=== PATIENT | female | born 1975 | race Caucasian/White ===

== ENCOUNTER 2016-10-07 20:12 | Outpatient (CLI) | payer MEDICAID | END 2016-10-07 20:13 | disposition home or self-care (01) | DX: N20.0 Calculus of kidney (principal) ==

== ENCOUNTER 2016-11-03 08:00 | Outpatient (CLI) | payer MEDICAID | END 2016-11-03 23:59 | disposition home or self-care (01) | DX: R19.7 Diarrhea, unspecified (principal); K92.1 Melena ==

== ENCOUNTER 2016-12-02 09:59 | Day surgery (SDC) | payer MEDICAID ==
[2016-12-02] MEDS ORDERED: LACTATED RINGERS 1,000 ML IV ONE ×2 (10:35→12:36)
[2016-12-02] MEDS ORDERED: MIDAZOLAM 2 MG/2 ML VIAL IVP ONE (12:11)
[2016-12-02] MEDS ORDERED: fentaNYL 250 MCG/5 ML VIAL IVP ONE (12:11)
== END 2016-12-02 10:00 | disposition home or self-care (01) ==
PROC: 0DBE8ZX Excision of Large Intestine, Via Natural or Artificial Opening Endoscopic, Diagnostic (ICD-10-PCS; principal; 2016-12-02 11:00)
DX: R19.7 Diarrhea, unspecified (principal); K64.2 Third degree hemorrhoids; F17.200 Nicotine dependence, unspecified, uncomplicated; J45.909 Unspecified asthma, uncomplicated
CPT/HCPCS: 45380; 81025; J3010; J7120

== ENCOUNTER 2017-10-13 14:42 | Emergency (ER) | payer MEDICAID ==
[2017-10-13 15:07] LABS: BILIRUBIN,URINE NEGATIVE (NEGATIVE); GLUCOSE, URINE (UA) NEGATIVE (NEGATIVE); KETONES,URINE (UA) NEGATIVE (NEGATIVE); LEUKOCYTE ESTERASE, URINE NEGATIVE (NEGATIVE); NITRITE,URINE NEGATIVE (NEGATIVE); OCCULT BLOOD,URINE NEGATIVE (NEGATIVE); PROTEIN,URINE NEGATIVE (NEGATIVE); UROBILINOGEN,URINE 0.2 (NORMAL) E.U./dL (NORMAL)
[2017-10-13 15:09] LABS: CLARITY,URINE CLEAR (CLEAR); HCG UR QUAL NEGATIVE
[2017-10-13 15:12] LABS: BASOPHILS # (AUTO) 0.1 10^3/uL (0.0-0.1); BASOPHILS % (AUTO) 0.6 %; EOSINOPHILS # (AUTO) 0.2 10^3/uL (0.0-0.7); EOSINOPHILS % (AUTO) 1.4 %; HGB - HEMOGLOBIN 14.1 g/dL (12.0-16.0); LYMPHOCYTES # (AUTO) 2.7 10^3/uL (1.5-3.5); LYMPHOCYTES % (AUTO) 23.7 %; MEAN CORPUSCULAR HEMOGLOBIN 29.2 pg (27.0-31.0); MEAN CORPUSCULAR HGB CONC 33.8 g/dL (32.0-36.0); MEAN CORPUSCULAR VOLUME 86.5 fL (81.0-99.0); MEAN PLATELET VOLUME 7.5 fL (7.9-10.8); MONOCYTES # (AUTO) 0.7 10^3/uL (0.0-1.0); MONOCYTES % (AUTO) 5.8 %; NEUTROPHILS # (AUTO) 7.7 10^3/uL (1.5-6.6); NEUTROPHILS % (AUTO) 68.5 %; PLT - PLATELET COUNT 272 10^3/uL (130-450); RED BLOOD COUNT 4.82 10^6/uL (4.20-5.40); RED CELL DISTRIBUTION WIDTH 14.7 % (12.0-15.0); WHITE BLOOD COUNT 11.3 x10^3/uL (4.8-10.8)
[2017-10-13 15:25] LABS: ALBUMIN 4.1 g/dL (3.2-5.5); ALBUMIN/GLOBULIN RATIO 1.2 (1.0-2.2); BILIRUBIN,TOTAL 0.9 mg/dL (0.2-1.0); CALCIUM 9.2 mg/dL (8.5-10.3); CREATININE 0.8 mg/dL (0.4-1.0); TOTAL PROTEIN 7.4 g/dL (6.7-8.2)
[2017-10-13] MEDS ORDERED: IOPAMIDOL-300 50 ML VIAL ONE (15:25)
[2017-10-13] MEDS ORDERED: ONDANSETRON 4 MG/2 ML VIAL IVP STA ×3 (15:36→19:37)
[2017-10-13] MEDS ORDERED: MORPHINE 10 MG/ML VIAL IVP STA ×2 (15:36→17:17)
[2017-10-13] MEDS ORDERED: BARIUM SULFATE 450 ML BOTTLE PO ONE (16:43)
--- NOTE | 2017-10-13 17:45 | CT Report ---
EXAM: CT ABDOMEN AND PELVIS EXAM DATE: 10/13/2017 05:15 PM. CLINICAL HISTORY: RLQ pain. Concern for appendicitis. COMPARISONS: 09/09/2016. TECHNIQUE: Routine helical CT imaging was performed through the abdomen and pelvis. IV contrast: 92 i odine allergy. Enteric contrast: Yes. Reconstructions: Coronal and sagittal. In accordance with CT protocol optimization, one or more of the following dose reduction techniques w ere utilized for this exam: automated exposure control, adjustment of mA and/or KV based on patient s ize, or use of iterative reconstructive technique. FINDINGS: Lung Bases: Unremarkable. Liver: Normal. No masses. Gallbladder/Bile Ducts: Unremarkable. Spleen: Normal. Pancreas: Normal. Adrenal Glands: Normal. Kidneys: Unremarkable right kidney. The left kidney remains ptotic and rotated, otherwise unremarkabl e. Peritoneal Cavity/Bowel: Normal. No free fluid, free air or adenopathy. No masses or acute inflammato ry process. The central pelvic appendix is well visualized and normal. Pelvic Organs: The reproductive organs and bladder are unremarkable. Vasculature: No aneurysms or other significant abnormality. Bones: No significant abnormality. Other: None. IMPRESSION: Normal abdomen and pelvis CT. Normal appendix noted. [facility] Referring Provider Line: [phone] SITE ID: [id number]
--- NOTE | 2017-10-13 20:12 | Ultrasound Report ---
EXAM: PELVIC ULTRASOUND EXAM DATE: 10/13/2017 07:24 PM. CLINICAL HISTORY: Right adnexal pain. COMPARISON: 10/13/2027. TECHNIQUE: Realtime transabdominal pelvic scan performed to identify the uterus and adnexa and as an overview of other pelvic structures, followed by transvaginal scan to provide greater detail of the u terus and adnexa, with static image documentation. FINDINGS: Uterus: 8.4 x 6.1 x 5.0 cm, volume 134 cc. Anteverted position. Normal overall size and echotexture. Masses: There is a left fundal subserosal fibroid measuring 2.4 x 1.8 x 2.1 cm. Endometrium: 10 mm. Echotexture is somewhat heterogeneous. There punctate echogenic foci within the d istal endometrium which could represent calcification. There is a 0.6 cm hypoechoic focus within the mid endometrium. This could represent a small cyst or submucosal fibroid. Cervix: There are several small cervical cysts. Right Ovary: 3.3 x 2.2 x 2.1 cm, volume 8 cc. Normal vascularity. There are several small follicles w ithin the right ovary. Left Ovary: Not seen. Free Fluid: There is a small amount of free fluid within the pelvis. Other: None. IMPRESSION: 1. There is a left fundal subserosal fibroid measuring up to 2.4 cm in diameter. 2. The endometrium is normal in thickness. Demonstrates mild heterogeneity. There is a 0.6 cm hypoech oic focus within the posterior mid endometrium. The hypoechoic focus could represent an endometrial c yst or possibly submucosal fibroid. 3. Right ovary is normal in size and vascularity. There are several left ovarian follicles. 4. The left ovary is not seen. 5. There is a small amount of free fluid within the pelvis. [facility] Referring Provider Line: [phone] SITE ID: [id number]
[2017-10-13] MEDS ORDERED: HYDROcod/ACETAM 5/325 MG TABLET PO STA (21:22)
--- NOTE | 2017-10-13 21:22 | ED Physician Documentation ---
History of Present Illness - Stated complaint Stated Complaint: APPENDICITIS R/O - Chief complaint Chief Complaint: Abd Pain - History obtained from History obtained from: Patient (pt sent to the ER for evaluation of RLQ pain and concern for appendicitis. states that she has had pain for the past couple days with increasing over the past day. no urinary sx, no vaginal bleeding, has had some nausea.) Review of Systems Constitutional: reports: Chills, Fatigue. denies: Fever Cardiac: denies: Chest pain / pressure, Palpitations Respiratory: denies: Dyspnea, Cough GI: reports: Abdominal Pain, Nausea, Vomiting. denies: Constipation, Diarrhea, Hematemesis : denies: Dysuria, Frequency, Vaginal bleeding Skin: denies: Rash, Lesions Musculoskeletal: denies: Neck pain, Back pain Neurologic: denies: Generalized weakness, Headache, LOC PD PAST MEDICAL HISTORY - Past Medical History Past Medical History: Yes Cardiovascular: None Respiratory: Asthma Endocrine/Autoimmune: None GI: Chronic diarrhea : None HEENT: Chronic vision loss Psych: Depression Musculoskeletal: None Derm: None - Past Surgical History Past Surgical History: Yes /POSTDOCTORAL SCHOLAR: Tubal ligation - Present Medications Home Medications: Ambulatory Orders Medication Instructions Recorded Confirmed Albuterol Sulfate 1.25 mg IH DAILY 03/28/13 10/13/17 HYDROcod/ACETAM 5/325 [[place] 5/325] 1 - 2 ea PO Q6H PRN #15 tablet 10/13/17 Ondansetron Odt [Zofran Odt] 4 mg TL Q6H PRN #10 tablet 10/13/17 - Allergies Allergies/Adverse Reactions: Allergies Allergy/AdvReac Type Severity Reaction Status Date / Time iodine Allergy breathing Verified 10/13/17 14:49 problems - Social History Does the pt smoke?: No Smoking Status: Never smoker Does the pt drink ETOH?: Yes Does the pt have substance abuse?: Yes - Immunizations Immunizations are current?: Yes PD ED PE NORMAL - Vitals Vital signs reviewed: Yes - General General: Alert and oriented X 3, No acute distress - HEENT HEENT: Atraumatic, Moist mucous membranes - Cardiac Cardiac: RRR, No murmur - Respiratory Respiratory: No respiratory distress, Clear bilaterally - Abdomen Abdomen: Soft, Other (RLQ tenderness with guarding. + heel tap, ) - Back Back: No CVA TTP - Derm Derm: Normal color, No rash - Extremities Extremities: No deformity, No edema - Neuro Neuro: Alert and oriented X 3 Eye Opening: Spontaneous Motor: Obeys Commands Verbal: Oriented GCS Score: 15 - Psych Psych: Normal mood, Normal affect Results - Vitals Vitals: Vital Signs - 24 hr 10/13/17 10/13/17 10/13/17 14:48 17:40 19:34 Temperature 36.4 C L Heart Rate 79 80 71 Respiratory 16 16 20 Rate Blood Pressure 115/69 105/65 120/76 O2 Saturation 100 95 99 10/13/17 10/13/17 20:49 21:43 Temperature 36.6 C Heart Rate 67 65 Respiratory 16 18 Rate Blood Pressure 114/70 110/68 O2 Saturation 97 98 Oxygen O2 Source Room air - Labs Labs: Laboratory Tests 10/13/17 10/13/17 10/13/17 14:55 15:00 15:00 WBC 11.3 H RBC 4.82 Hgb 14.1 Hct 41.7 MCV 86.5 MCH 29.2 MCHC 33.8 RDW 14.7 Plt Count 272 MPV 7.5 L Neut # 7.7 H Lymph # 2.7 Antelope # 0.7 Eos # 0.2 Baso # 0.1 Absolute Nucleated RBC 0.00 Nucleated RBC % 0.0 Sodium 138 Potassium 3.7 Chloride 100 L Carbon Dioxide 24 Anion Gap 14.0 H BUN 13 Creatinine 0.8 Estimated GFR (MDRD) 79 L Glucose 99 Calcium 9.2 Total Bilirubin 0.9 AST 19 ALT 13 Alkaline Phosphatase 56 Total Protein 7.4 Albumin 4.1 Globulin 3.3 Albumin/Globulin Ratio 1.2 Lipase 31 Urine Color YELLOW Urine Clarity CLEAR Urine pH 6.0 Ur Specific [place] >=1.030 H Urine Protein NEGATIVE Urine Glucose (UA) NEGATIVE Urine Ketones NEGATIVE Urine Occult Blood NEGATIVE Urine Nitrite NEGATIVE Urine Bilirubin NEGATIVE Urine Urobilinogen 0.2 (NORMAL) Ur Leukocyte Esterase NEGATIVE Ur Microscopic Review NOT INDICATED Urine Culture Comments NOT INDICATED Urine HCG, Qual NEGATIVE - Rads (name of study) CT ABD/Pelvis Radiology: Final report received (MPRESSION: Normal abdomen and pelvis CT. Normal appendix noted. ), EMP read contemporaneously pelvic US Radiology: Final report received (normal right ovary, left ovarian follicles, small amount of free fluid in the pelvis) PD MEDICAL DECISION MAKING - ED course Complexity details: reviewed results, re-evaluated patient, considered differential, d/w patient ED course: no appy, normal right ovary, no urinary sx, no vaginal discharge, pt denies STI' s or possibilities of STI's. no surgical condition found. will treat symptoms. does have free fluid in the pelvis which may be from a ruptured cyst. pt given return precautions. Departure - Departure Disposition: 01 Home, Self Care Clinical Impression: Abdominal pain Condition: Good Instructions: ED Abdominal Pain Unkn Cause Follow-Up: Patti Limon ARNP [Primary Care Provider] - Prescriptions: HYDROcod/ACETAM 5/325 [[place] 5/325] 1 - 2 ea PO Q6H PRN #15 tablet PRN Reason: Pain Ondansetron Odt [Zofran Odt] 4 mg TL Q6H PRN #10 tablet PRN Reason: Nausea / Vomiting Comments: Call your primary care provider for a follow up. Return to the ER for any new or worsening symptoms, Forms: Activity restrictions Discharge Date/Time: 10/13/17 21:44
[2017-10-13 21:44] VITALS: BP 110/68
== END 2017-10-13 21:44 | disposition home or self-care (01) ==
LOC: ED 14:42
DX: R10.31 Right lower quadrant pain (principal)
CPT/HCPCS: 36415; 74176; 76830; 76856; 80053; 81003; 81025; 83690; 85025; 93976; 96374; 96375; 96376; 99283; 99284; A9270; 81001; 87086

== ENCOUNTER 2017-10-27 16:26 | Outpatient (CLI) | payer MEDICAID ==
[~2017-10-27 16:26] MED LIST: GADOBUTROL 7.5 MMOL/7.5 ML VIAL ONE
[2017-10-27] MEDS: GADOBUTROL 7.5 MMOL/7.5 ML VIAL IVP ONE (17:14)
--- NOTE | 2017-10-28 17:40 | MRI Preliminary Report ---
Exam: MRI BRAIN W/WO Impressions: 1. No acute or subacute ischemic change. 2. There is a 1.7 cm meningioma overlying left occipital lobe, mild focal mass effect however no reac tive vasogenic edema, no midline shift. 3. Remaining brain, orbits negative as detailed. [facility] SITE ID: [id number]
--- NOTE | 2017-10-28 17:41 | MRI Report ---
EXAM: MRI BRAIN WITHOUT AND WITH CONTRAST EXAM DATE: 10/27/2017 05:25 PM. CLINICAL HISTORY: BRAIN MENINGIOMA. COMPARISON: None. TECHNIQUE: Multiplanar, multisequence T1-weighted and fluid-sensitive MR sequences of the brain were performed. Sequences optimized for routine evaluation. Other: None. IV Contrast: Yes. Findings: Relevant images are indicated (image number, series number). There is no acute or subacute ischemic change in the brain. There is no significant hemosiderin depos ition present in the brain. Postcontrast imaging demonstrates single homogenously enhancing extra-axial mass overlying left occip ital pole near the parietal occipital sulcus (40, 1201; 68, 1202), which measures 1.7 x 1.1 x 1.5 cm AP by transverse by sagittal. Mild focal mass effect however no vasogenic edema. Postcontrast imaging otherwise demonstrates no other suspicious enhancement of the brain, meninges. Basal cisterns, bilateral IACs, bilateral Meckel's caves are clear. Orbital contents negative. No cor tical atrophy. Ventricles are not dilated. There are normal expected vascular flow voids of the major arteries and veins. There are no suspicious marrow lesions. There is no white matter disease. Pituit danika, mid brain, craniocervical junction, limited evaluation upper cervical cord negative. Extraocular muscles, optic nerves, orbital apex, optic chiasm negative. Impressions: 1. No acute or subacute ischemic change. 2. There is a 1.7 cm meningioma overlying left occipital lobe, mild focal mass effect however no reac tive vasogenic edema, no midline shift. 3. Remaining brain, orbits negative as detailed. [facility] Referring Provider Line: [phone] SITE ID: [id number]
== END 2017-10-27 16:27 | disposition home or self-care (01) ==
LOC: DI 16:26
PROVIDERS: ATTEND Nurse Practitioner Family
DX: D32.0 Benign neoplasm of cerebral meninges (principal)
CPT/HCPCS: 70553; A9585

== ENCOUNTER 2017-11-30 11:21 | Emergency (ER) | payer MEDICAID, OTHER ==
[2017-11-30 11:36] VITALS: BP 123/80
[2017-11-30] MEDS ORDERED: IBUPROFEN 800 MG TABLET PO STA (12:35)
--- NOTE | 2017-11-30 12:38 | ED Physician Documentation ---
PD HPI UPPER EXT INJURY - Stated complaint Stated Complaint: R ARM INJ-GLF - Chief complaint Chief Complaint: Ext Problem - History obtained from History obtained from: Patient - History of Present Illness Location: Right, Arm, Wrist Type of injury: Fall Where injury occurred: Work Timing - onset: How many hours ago (2) Worsened by: Moving, Palpating Associated symptoms: No: Weakness, Numbness Similar symptoms before: Has not had sx before - Additonal information Additional information: The patient is a 42-year-old female who was at work when she tripped over a pallet and fell, impacting her right upper extremity against a shopping cart. She presents now complaining of pain in her right wrist and right upper arm. She is right-hand dominant. She denies any other injuries. Review of Systems Constitutional: denies: Fever Nose: denies: Congestion Cardiac: denies: Chest pain / pressure Respiratory: denies: Dyspnea, Cough GI: denies: Abdominal Pain, Nausea, Vomiting Skin: denies: Rash, Abrasion (s), Laceration (s) Musculoskeletal: reports: Extremity pain (Right upper extremity.). denies: Back pain Neurologic: denies: Focal weakness, Numbness, Head injury, LOC PD PAST MEDICAL HISTORY - Past Medical History Past Medical History: Yes Cardiovascular: None Respiratory: Asthma Endocrine/Autoimmune: None GI: Chronic diarrhea : None HEENT: Chronic vision loss Psych: Depression Musculoskeletal: None Derm: None Other Past Medical History: Report "tumor" on the L side of head. - Past Surgical History Past Surgical History: Yes /ACUTE CARE REGISTERED NURSE: Tubal ligation - Present Medications Home Medications: Ambulatory Orders Medication Instructions Recorded Confirmed Albuterol Sulfate 1.25 mg IH DAILY 03/28/13 11/30/17 HYDROcod/ACETAM 5/325 [[place] 5/325] 1 - 2 ea PO Q6H PRN #15 tablet 11/30/17 - Allergies Allergies/Adverse Reactions: Allergies Allergy/AdvReac Type Severity Reaction Status Date / Time iodine Allergy breathing Verified 11/30/17 11:31 problems - Social History Does the pt smoke?: Yes Smoking Status: Current every day smoker Does the pt drink ETOH?: Yes ETOH Use: Wine, Beer Does the pt have substance abuse?: Yes Substance Use and Type: Marijuana - Immunizations Immunizations are current?: Yes - POLST Patient has POLST: No PD ED PE NORMAL - Vitals Vital signs reviewed: Yes (normal) - General General: Alert and oriented X 3, Well developed/nourished - HEENT HEENT: Atraumatic, EOMI - Neck Neck: No bony TTP, No adenopathy - Cardiac Cardiac: RRR, No murmur - Respiratory Respiratory: No respiratory distress, Clear bilaterally, Other (No chest wall tenderness to palpation.) - Abdomen Abdomen: Soft, Non tender - Back Back: No CVA TTP, No spinal TTP - Derm Derm: No rash - Extremities Extremities: No deformity, Other (There is tenderness to palpation of the right upper arm, and decreased elevation of the right arm at the shoulder due to pain. There is also tenderness at the radial aspect of the right wrist, without deformity. Distal neurovascular is intact.) - Neuro Neuro: Alert and oriented X 3, No motor deficit, No sensory deficit Results - Vitals Vitals: Oxygen O2 Source Room air - Rads (name of study) right humerus Radiology: Prelim report reviewed, EMP read contemporaneously, See rad report ( Normal humerus radiography.) right wrist Radiology: Prelim report reviewed, EMP read contemporaneously, See rad report ( No acute osseous abnormality.) PD MEDICAL DECISION MAKING - ED course Complexity details: reviewed results, re-evaluated patient, considered differential, d/w patient ED course: The patient's presentation is significant for contusion to the right arm and wrist secondary to falling when she tripped over a pallet at work. X-ray of the humerus and wrist reveal no evidence of fracture or dislocation. Treatment in the emergency department included administration of ibuprofen 800 mg orally, and application of an arm sling. A labor and industries form was completed. 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 Departure - Departure Disposition: 01 Home, Self Care Clinical Impression: Contusion of right arm Qualifiers: Encounter type: initial encounter Qualified Code(s): S40.021A - Contusion of right upper arm, initial encounter Fall Qualifiers: Encounter type: initial encounter Qualified Code(s): W19.XXXA - Unspecified fall, initial encounter Condition: Stable Instructions: ED Contusion Upper Ext Follow-Up: Patti Limon ARNP [Primary Care Provider] - Prescriptions: HYDROcod/ACETAM 5/325 [[place] 5/325] 1 - 2 ea PO Q6H PRN #15 tablet PRN Reason: Pain Comments: Use the arm sling for comfort. Apply ice pack intermittently for the next 3 days. You can use ibuprofen, up to 800 mg 3 times daily for its anti-inflammatory effect. You can use Vicodin as prescribed if needed for pain. Let pain be your guide to activity level. Follow up with your primary physician within 1-2 weeks. Call to schedule an appointment. Return to the emergency department if you develop markedly increasing pain, or otherwise worsening symptoms. Discharge Date/Time: 11/30/17 13:53
--- NOTE | 2017-11-30 13:18 | XRAY Report ---
EXAM: RIGHT WRIST RADIOGRAPHY EXAM DATE: 11/30/2017 12:58 PM. CLINICAL HISTORY: Fall, with right wrist pain. COMPARISON: Concurrent humerus radiographs.. TECHNIQUE: 3 views. FINDINGS: Bones: No acute despite fracture. No suspicious focal osseous lesion. Joints: No subluxation. Soft Tissues: No focal soft tissue swelling appreciated. IMPRESSION: No acute osseous abnormality. [facility] Referring Provider Line: [phone] SITE ID: [id number]
--- NOTE | 2017-11-30 13:18 | XRAY Preliminary Report ---
Exam: XR WRIST 3 VIEW RT IMPRESSION: No acute osseous abnormality. [facility] SITE ID: [id number]
--- NOTE | 2017-11-30 13:20 | XRAY Preliminary Report ---
Exam: XR HUMERUS RT IMPRESSION: Normal humerus radiography. [facility] SITE ID: [id number]
--- NOTE | 2017-11-30 13:21 | XRAY Report ---
EXAM: RIGHT HUMERUS RADIOGRAPHY EXAM DATE: 11/30/2017 12:57 PM. CLINICAL HISTORY: Fall, impacting right arm. COMPARISON: Concurrent right wrist radiographs.. TECHNIQUE: 2 views. FINDINGS: Bones: Normal. No fractures or bone lesions. Joints: Normal. No effusions or subluxations in the visualized shoulder or elbow joints. Soft Tissues: Normal. No soft tissue swelling. IMPRESSION: Normal humerus radiography. [facility] Referring Provider Line: [phone] SITE ID: [id number]
== END 2017-11-30 13:53 | disposition home or self-care (01) ==
LOC: ED 11:21
DX: S40.021A Contusion of right upper arm, initial encounter (principal); W18.09XA Striking against other object with subsequent fall, initial encounter; Y99.0 Civilian activity done for income or pay; F17.200 Nicotine dependence, unspecified, uncomplicated
CPT/HCPCS: 73060; 73110; 99283; A9270